=== PATIENT | female | born 1985 | race Caucasian/White ===

== ENCOUNTER 2021-06-27 13:34 | Inpatient (IN) ==
[2021-06-27] MEDS ORDERED: LACTATED RINGERS 1,000 ML IV ONE (14:45)
[2021-06-27 15:41] LABS: Bacteria,Urine Moderate /HPF (Few); Bilirubin,Urine Negative (Negative); Blood, Urine Small mg/dL (Negative); Glucose,Urine (UA) Negative (Negative); Ketones,Urine Negative (Negative); Mucus,Urine Occasional /LPF (Occasional); Nitrite,Urine Negative (Negative); Protein,Urine Negative; RBC,Urine 1 /HPF (0-4); Squamous Epithelial Cell,Urine Occasional /HPF (0-10); Urine Appearance CLEAR (Clear); Urine Color Colorless (Yellow); Urine Specific Gravity 1.002 (1.001-1.035); Urine Urobilinogen < 2.0 EU/DL (<2.0)
[2021-06-27 16:40] LABS: Basophils % 0.1 % (0.0-0.8); Eosinophils # 0.1 10*3/uL (0.0-0.87); Eosinophils % 0.5 % (0.00-10.9); Hematocrit 33.7 VOL% (35.7-47.0); Hemoglobin 10.6 GM/DL (12.0-16.0); Immature Granulocytes % 0.8 %; Lymphocytes # 1.7 10*3/uL (1.4-4.0); Lymphocytes % 14.7 % (21.3-54.2); Mean Corpuscular HGB Conc 31.5 GM/DL (32-36); Mean Platelet Volume 11.3 FL (9.6-12.0); Monocytes % 5.6 % (1.7-12.7); Neutrophils % 78.3 % (38.7-73.9); Platelet Count 191 T/CUMM (130-400); Red Blood Count 4.16 MC/CUMM (3.8-5.5); Red Cell Distribution Width 13.7 % (9.3-17.3); White Blood Count 11.8 T/CUMM (4-12)
[2021-06-27 16:55] LABS: INR 0.9; PT Patient Result 10.3 SECS (10.5-12.0)
[2021-06-27 17:03] LABS: Albumin 2.4 G/DL (3.4-5.0); Bilirubin,Total 0.6 MG/DL (0.20-1.00); Calcium 8.5 MG/DL (8.5-10.1); Osmolality,Calculated 273.5 MOS/KG (273-304); Potassium 3.7 MMOL/L (3.5-5.1); Total Protein 6.5 G/DL (6.4-8.2); Uric Acid 5.5 MG/DL (2.6-6.0)
[2021-06-27] MEDS ORDERED: LACTATED RINGERS 1,000 ML IV PRN (18:30)
[2021-06-28] MEDS ORDERED: ALUMINUM/MAGNES/SIMETH MAX STR 30 ML UDCUP PO PRN (03:56)
[2021-06-28] MEDS ORDERED: CITRIC ACID/SODIUM CITRATE 30 ML UDCUP PO ONE (10:00)
[2021-06-28] MEDS ORDERED: FAMOTIDINE 20 MG/2 ML VIAL IV ONE (10:00)
[2021-06-28] MEDS ORDERED: ceFAZolin 2,000 MG/50 ML DUPLEX IV ONE (10:00)
[2021-06-28] MEDS ORDERED: OXYTOCIN/LR 20 UNIT/1,000 ML BAG IV ONE ×3 (11:36→13:28)
[2021-06-28] MEDS ORDERED: miSOPROStoL 200 MCG TABLET ONE (11:36)
[2021-06-28] MEDS ORDERED: TRANEXAMIC ACID 1,000 MG/10 ML VIAL ONE (11:36)
[2021-06-28] MEDS ORDERED: METHYLERGONOVINE 0.2 MG/1 ML AMP ONE (11:37)
[2021-06-28] MEDS ORDERED: CARBOPROST TROMETHAMINE 250 MCG/ML AMP IM ONE (11:37)
[2021-06-28] MEDS ORDERED: BUPIVACAINE SPINAL 0.75% 2 ML AMP SPINAL ONE (11:44)
[2021-06-28] MEDS ORDERED: ONDANSETRON 4 MG/2 ML VIAL ONE (11:48)
[2021-06-28] MEDS ORDERED: ePHEDrine 50 MG/ML VIAL ONE (12:21)
[2021-06-28] MEDS ORDERED: PHENYLEPHRINE 1 MG/10 ML SYRINGE IV ONE (12:52)
[2021-06-28 13:05] LABS: Bacteria,Urine Occasional /HPF (Few); Bilirubin,Urine Negative (Negative); Blood, Urine Negative (Negative); Glucose,Urine (UA) Negative (Negative); Ketones,Urine 5 mg/dL (Negative); Mucus,Urine Occasional /LPF (Occasional); Nitrite,Urine Negative (Negative); Protein,Urine 30 MG/DL; RBC,Urine 3 /HPF (0-4); Squamous Epithelial Cell,Urine Occasional /HPF (0-10); Urine Appearance CLEAR (Clear); Urine Color Yellow (Yellow); Urine Specific Gravity 1.013 (1.001-1.035); Urine Urobilinogen < 2.0 EU/DL (<2.0)
[2021-06-28 13:06] LABS: Cord Venous Blood HCO3 20.3 MMOL/L; Cord Venous Blood PCO2 54.6 MMHG
[2021-06-28 13:09] LABS: Cord Arterial Blood HCO3 21.5 MMOL/L
[2021-06-28] MEDS ORDERED: TISSUE ADHESIVE 1 EACH APPLICATOR TOP ONE (13:13)
[2021-06-28] MEDS ORDERED: ACETAMINOPHEN 325 MG TABLET PO PRN (13:28)
[2021-06-28] MEDS ORDERED: RHO(D) IMMUNE GLOBULIN 300 MCG SYRINGE IM ONE (13:28)
[2021-06-28] MEDS ORDERED: MAGNESIUM HYDROXIDE SUSP 30 ML UDCUP PO PRN (13:28)
[2021-06-28] MEDS ORDERED: ONDANSETRON 4 MG/2 ML VIAL IV PRN (13:28)
[2021-06-28] MEDS ORDERED: SIMETHICONE CHEW 80 MG TABLET PO PRN (13:28)
[2021-06-28] MEDS ORDERED: oxyCODONE/ACETAMINOPHEN 5-325 MG TABLET PO PRN (13:30)
[2021-06-28] MEDS ORDERED: KETOROLAC 30 MG/1 ML VIAL IV SCH (13:30)
[2021-06-28] MEDS ORDERED: LACTATED RINGERS 1,000 ML IV SCH (13:30)
[2021-06-28] MEDS: LABETALOL 200 MG TABLET PO SCH ×2 (15:17→22:09)
[2021-06-28] MEDS: KETOROLAC 30 MG/1 ML VIAL IV SCH ×2 (15:18→22:10)
[2021-06-28] MEDS: ACETAMINOPHEN 500 MG TABLET PO SCH (17:15)
[2021-06-28] MEDS: DOCUSATE SODIUM 100 MG CAPSULE PO SCH (23:36)
[2021-06-29] MEDS: ACETAMINOPHEN 500 MG TABLET PO SCH ×3 (00:02→10:22)
[2021-06-29] MEDS: KETOROLAC 30 MG/1 ML VIAL IV SCH ×2 (03:07→10:20)
[2021-06-29 05:58] LABS: Basophils % 0.3 % (0.0-0.8); Eosinophils # 0.1 10*3/uL (0.0-0.87); Eosinophils % 0.6 % (0.00-10.9); Hematocrit 26.5 VOL% (35.7-47.0); Hemoglobin 8.5 GM/DL (12.0-16.0); Immature Granulocytes % 0.7 %; Lymphocytes # 1.8 10*3/uL (1.4-4.0); Lymphocytes % 12.3 % (21.3-54.2); Mean Corpuscular HGB Conc 32.1 GM/DL (32-36); Mean Platelet Volume 11.2 FL (9.6-12.0); Neutrophils % 80.1 % (38.7-73.9); Platelet Count 155 T/CUMM (130-400); Red Blood Count 3.23 MC/CUMM (3.8-5.5); Red Cell Distribution Width 13.9 % (9.3-17.3); White Blood Count 14.3 T/CUMM (4-12)
[2021-06-29] MEDS: DOCUSATE SODIUM 100 MG CAPSULE PO SCH ×2 (09:21→21:26)
[2021-06-29] MEDS: LABETALOL 200 MG TABLET PO SCH ×2 (09:29→21:26)
[2021-06-29] MEDS: MULTIVITAMIN (PRENATAL) TABLET PO SCH (09:29)
[2021-06-29] MEDS: IBUPROFEN 800 MG TABLET PO PRN ×2 (10:17→21:28)
[2021-06-30] MEDS: IBUPROFEN 800 MG TABLET PO PRN (07:06)
[2021-06-30] MEDS: LABETALOL 200 MG TABLET PO SCH (08:45)
[2021-06-30] MEDS: DOCUSATE SODIUM 100 MG CAPSULE PO SCH (08:45)
[2021-06-30] MEDS: MULTIVITAMIN (PRENATAL) TABLET PO SCH (08:45)
[2021-06-30 13:45] VITALS: BP 134/82
== END 2021-06-30 13:00 | disposition home or self-care (01) | DRG 540 ==
LOC: N.LDOUT 13:34 → N.LD 13:36 → N.OB 06-28 16:50
PROVIDERS: ADMIT Obstetrics & Gynecology; ATTEND Obstetrics & Gynecology
PROC: LDCSECT (ICD-10-PCS; 2021-06-28 12:00)